=== PATIENT | male | born 1975 | race Caucasian/White ===

== ENCOUNTER 2017-06-08 00:24 | Emergency (ER) | payer BC ==
[~2017-06-08] VITALS: Ht 190.5 cm; Wt 122.5 kg
[2017-06-08] MEDS ORDERED: ZOLOFT100 MG PO (00:40)
[2017-06-08] MEDS ORDERED: KEFLEX500 M1 PO (01:59)
== END 2017-06-08 02:37 | disposition home or self-care (01) ==
LOC: ER 00:24
DX: S61.210A Laceration without foreign body of right index finger without damage to nail, initial encounter (principal); W22.8XXA Striking against or struck by other objects, initial encounter; Y93.89 Activity, other specified; Y92.89 Other specified places as the place of occurrence of the external cause; Y99.8 Other external cause status

== ENCOUNTER 2017-06-25 20:03 | Emergency (ER) | payer OTHER ==
[~2017-06-25] VITALS: Ht 188 cm; Wt 115.7 kg
[~2017-06-25 20:03] MED LIST: KEFLEX500 M1 PO; ZOLOFT100 MG PO
== END 2017-06-25 20:26 | disposition home or self-care (01) ==
LOC: ER 20:03
DX: S61.210D Laceration without foreign body of right index finger without damage to nail, subsequent encounter (principal); X58.XXXD Exposure to other specified factors, subsequent encounter